=== PATIENT | female | born 1960 | race Caucasian/White ===

== ENCOUNTER 2024-07-12 18:32 | Observation (INO) | payer OTHER ==
--- NOTE | 2024-07-12 19:02 | ED ---
General Adult HPI - General Chief complaint: Dizziness Stated complaint: Dizzy/Headache Time Seen by Provider: 07/12/24 18:36 Source: patient Mode of arrival: EMS Limitations: no limitations - History of Present Illness Initial comments: Patient is a 63-year-old female history of paroxysmal atrial fibrillation, migraine headaches, recent TIA presenting today for sudden onset headache and dizziness. History is limited as patient is very uncomfortable. States was admitted about a week ago in [place] for a TIA and was in atrial fibrillation at that time. That was a new diagnosis for the patient and she spontaneously converted to sinus rhythm. She was not discharged on any anticoagulants. Patient states that her TIA did have similar symptoms to today however the severe headache did not happen previously. Patient estimates her headache started sometime this evening. It has been top with her head to the front of her head. She endorses dizziness like the room is spinning worsening with head movements. Associated nausea without episodes of emesis. States she feels like her stomach is upset but denies abdominal pain. She denies chest pain or shortness of breath, neck stiffness, focal numbness, weakness or slurred speech. Denies changes in vision. No meds prior to arrival. - Related Data Home Medications Medication Instructions Recorded Confirmed Aspirin EC [Ecotrin Low Dose] 81 mg PO DAILY 07/12/24 07/12/24 Atorvastatin [Lipitor] 40 mg PO HS 07/12/24 07/12/24 Biotin 5,000 mcg PO BID 07/12/24 07/12/24 Citalopram Hydrobromide [CeleXA] 40 mg PO BID 07/12/24 07/12/24 Cyclobenzaprine [Flexeril] 10 mg PO HS 07/12/24 07/12/24 D-Mannose 500mg 1,000 mg PO HS 07/12/24 07/12/24 Ergocalciferol (Vitamin D2) 1,250 mcg PO FR 07/12/24 07/12/24 [Drisdol (50,000 Iu)] Methenamine Hippurate 1 gm PO HS 07/12/24 07/12/24 Mirtazapine [Remeron] 15 mg PO HS 07/12/24 07/12/24 Omeprazole 20 mg PO AC-BID 07/12/24 07/12/24 Oxybutynin Chloride [oxyBUTYnin 10 mg PO HS 07/12/24 07/12/24 chloride ER] Topiramate 100 mg PO DAILY 07/12/24 07/12/24 busPIRone HCl [Buspar] 10 mg PO DAILY 07/12/24 07/12/24 Previous Rx's Medication Instructions Recorded Acetaminophen Tab [Tylenol] 650 mg PO Q6HR PRN tab 07/15/24 Ketorolac [Toradol] 10 mg PO BID PRN #10 tab 07/15/24 Magnesium Oxide [Mag-Ox] 400 mg PO BID #60 tablet 07/15/24 Meclizine [Antivert] 25 mg PO TID #40 tab 07/15/24 Ondansetron Odt [Zofran Odt] 4 mg PO Q8HR PRN #15 tab 07/15/24 Allergies Allergy/AdvReac Type Severity Reaction Status Date / Time Penicillins Allergy Anaphylaxis Verified 07/12/24 20:01 tetanus and diphtheria Allergy Anaphylaxis Verified 07/12/24 20:01 toxoids Review of Systems ROS Statement: Those systems with pertinent positive or pertinent negative responses have been documented in the HPI. ROS Other: All systems not noted in ROS Statement are negative. Past Medical History Past Medical History: CVA/TIA, GERD/Reflux Additional Past Medical History / Comment(s): TIA, Bladder problem General Exam - General Exam Comments Initial Comments: PE: CONSTITUTIONAL: No apparent distress, ill-appearing, nontoxic SKIN: Warm, dry, no jaundice, hives or petechiae EYES: Pupils are equally round, extraocular movements intact without nystagmus, clear conjunctiva, non-icteric sclera HENT: Normocephalic, atraumatic, moist mucus membranes, oropharynx clear without exudates NECK: , Full range of motion, normal appearance PULMONARY: Clear to auscultation without wheezes, rhonchi, or rales, normal excursion, no accessory muscle use and no stridor CARDIOVASCULAR: Regular rate, rhythm, normal S1 and S2. No appreciated murmurs, rubs or gallops. Strong radial pulses with intact distal perfusion. No lower extremity edema GASTROINTESTINAL: Soft, active bowel sounds throughout, non-tender, non- distended, no palpable masses, no rebound or guarding. No hepatosplenomegaly MUSCULOSKELETAL: Extremities have no gross deformity, no edema, redness, or swelling. No calf swelling NEUROLOGIC:_a/o x 3, GCS 15, normal mentation and speech. Moves all extremities x 4 without motor or sensory deficit, exam limited by patient's ability to cooperate with exam due to severe dizziness, has difficulty keeping her eyes open due to dizziness with eye movements, cranial nerves: II (visual diaz without defects), III, IV and (extraocular movements are intact, pupils are equal with normal reaction to light), V (intact facial sensation and jaw opening), VII (no facial droop), IX and X (normal palate movement, midline uvula, normal voice), XI (symmetrical shoulder shrug and lateral head rotation against resistance), XII (midline tongue protrusion). Motor strength is 5/5 in all extremities. No abnormal movements. Normal muscle tone. Sensation to light touch is intact bilaterally. [id number] is normal, patient was briefly able to perform [id number]-[id number] testing however was unable to complete this portion of exam due to dizziness, however with portion exam that was completed there was no dysdiadochokinesia PSYCHIATRIC:_normal mood and affect, thought process is clear and linear Limitations: no limitations Course Vital Signs 07/12/24 07/12/24 07/13/24 18:32 21:01 00:20 Temperature 98.1 F 97.7 F Pulse Rate 80 84 73 Pulse Rate [ Pulse Oximetery ] Respiratory 20 20 20 Rate Blood Pressure 121/102 157/82 112/61 Blood Pressure [Right Arm] O2 Sat by Pulse 97 96 Oximetry 07/13/24 07/13/24 07/13/24 02:00 04:00 08:45 Temperature 98.5 F Pulse Rate 77 68 76 Pulse Rate [ Pulse Oximetery ] Respiratory 18 18 20 Rate Blood Pressure 110/63 124/74 116/87 Blood Pressure [Right Arm] O2 Sat by Pulse 97 97 97 Oximetry 07/13/24 07/13/24 07/13/24 18:45 20:00 20:36 Temperature 96.7 F L Pulse Rate 82 84 Pulse Rate [ 83 Pulse Oximetery ] Respiratory 20 20 Rate Blood Pressure 146/85 132/87 Blood Pressure 129/62 [Right Arm] O2 Sat by Pulse 96 93 L 96 Oximetry - Reevaluation(s) Reevaluation #1: CT team was contacted regarding concern for subarachnoid hemorrhage, due to new headache and severe dizziness, recent admission for TIA and request for priority CT. CT did just stop working so this will be briefly delayed due to this. I again relayed the urgency of needing patient a CT scan performed, this will be done a soon as possible. 07/12/24 19:00 07/15/24 21:01 EKG Findings - EKG Comments: EKG Findings:: Sinus rhythm with PVCs, rate 76 bpm KS interval 172 ms QT/QTc 420/454 ms, normal axis, no ST elevations or depressions, respiratory variation Medical Decision Making - Medical Decision Making Was pt. sent in by a medical professional or institution (, PA, CATEGORY CONSULTANT, urgent care, hospital, or [place] health care facility...) When possible be specific @ -No Did you speak to anyone other than the patient for history (EMS, parent, family, police, friend...)? What history was obtained from this source @ -No Did you review nursing and triage notes (agree or disagree)? Why? @ -I reviewed nursing and triage notes-I evaluated the patient prior to triage note being recorded Were old charts reviewed (outside hosp., previous admission, EMS record, old EKG, old radiological studies, urgent care reports/EKG's, [place] health care facility records)? Report findings @ -Medical records reviewed-no prior ED visits for review Differential Diagnosis (chest pain, altered mental status, abdominal pain women, abdominal pain men, vaginal bleeding, weakness, fever, dyspnea, syncope, headache, dizziness, GI bleed, back pain, seizure, CVA, palpatations, mental health, musculoskeletal)? Differential diagnose remains broad however top considerations include benign p aroxysmal positional Vertigo, Meniere's disease, otitis media, acoustic neuroma, vertebrobasilar insufficiency, cerebellar stroke, subarachnoid hemorrhage, encephalitis, hypovolemic, arrhythmia, coronary artery syndrome, anemia, this is not meant to be an all-inclusive list EKG interpreted by me (3pts min.). @ -As above X-rays interpreted by me (1pt min.). @Chest x-ray was reviewed I see no evidence of pleural effusions, pneumothorax or consolidations, I agree with radiologist interpretation CT interpreted by me (1pt min.). @Reviewed CT brain, I see no evidence of hemorrhage or mass effect, personally reviewed CT angiogram I see no evidence of hemorrhage, dissection, large vessel occlusion, on specific attention to CT C-spine I see no evidence of fracture or malalignment U/S interpreted by me (1pt. min.). @ -None done What testing was considered but not performed or refused? (CT, X-rays, U/S, labs)? Why? @ -None What meds were considered but not given or refused? Why? @ -None Did you discuss the management of the patient with other professionals (professionals i.e. DrSriram, PA, CATEGORY CONSULTANT, lab, RT, psych nurse, oncology social worker, superior court judge, teacher, postal delivery officer, window caser)? Give summary @ -No Was smoking cessation discussed for >3mins.? @ -No Was critical care preformed (if so, how long)? @ -No Were there social determinants of health that impacted care today? How? (Homelessness, low income, unemployed, alcoholism, drug addiction, transportation, low edu. Level, literacy, decrease access to med. care, prison, rehab)? @ -No Was there de-escalation of care discussed even if they declined (Discuss DNR or withdrawal of care, Hospice)? @ -No What co-morbidities impacted this encounter? (DM, HTN, Smoking, COPD, CAD, Cancer, CVA, ARF, Chemo, Hep., AIDS, mental health diagnosis, sleep apnea, morbid obesity)? Paroxysmal A-fib, migraines Was patient admitted / discharged? Hospital course, mention meds given and route, prescriptions, significant lab abnormalities, going to OR and other per tinent info. @ Admission- This is a pleasant 63-year-old female history recent TIA, paroxysmal A-fib, migraine headaches presenting today for severe headache and dizziness. Patient seen assessed on arrival. She has no focal neurologic deficits, hints exam is unable be performed due to severe dizziness. She had normal finger-nose testing with her right upper extremity however finger-nose testing was stopped due to severe dizziness with [id number]-[id number]-xpyt testing. Otherwise no focal deficits. She is not severely hypertensive here. Headache onset within the last 6 hours. Of the top concern there subarachnoid hemorrhage vs cerebellar etiology, stat CT brain and CTA were ordered. Patient does have history of BIGGS so Tylenol cannot be used for headache. Ordered morphine, Benadryl, Reglan and Zofran CT brain, CTA negative for acute process. Chest x-ray negative for acute process. Labs reassuring. On reassessment patient endorses mild proved of her headache however still notes persistent dizziness. Discussed with patient admission for observation for intractable dizziness, nausea and vomiting. Given headache onset within 6 hours of arrival and negative CT and CTA subarachnoid he morrhage ruled out I do not feel further workup with LP is indicated at this point. Case discussed with Dr. Salcedo, kindly accepts pt for admission. Undiagnosed new problem with uncertain prognosis? @ -No Drug Therapy requiring intensive monitoring for toxicity (Heparin, Nitro, Insulin, Cardizem)? @ -No Were any procedures done? @ -No Diagnosis/symptom? @Intractable headache, intractable dizziness Acute, or Chronic, or Acute on Chronic? @ -Acute Uncomplicated (without systemic symptoms) or Complicated (systemic symptoms)? Complicated Side effects of treatment? @ -No Exacerbation, Progression, or Severe Exacerbation? @ -No Poses a threat to life or bodily function? How? (Chest pain, USA, VT, pneumonia, PE, COPD, DKA, ARF, appy, cholecystitis, CVA, Diverticulitis, Homicidal, Suicidal, threat to staff... and all critical care pts) @ - Lab Data Result diagrams: 07/12/24 19:10 07/15/24 03:51 Lab Results 07/12/24 07/12/24 07/12/24 Range/Units 19:10 19:10 19:14 WBC 5.0 (3.8-10.6) k/uL RBC 4.53 (3.80-5.40) m/uL Hgb 13.9 (11.4-16.0) gm/dL Hct 43.7 (34.0-46.0) % MCV 96.4 (80.0-100.0) fL MCH 30.7 (25.0-35.0) pg MCHC 31.8 (31.0-37.0) g/dL RDW 13.3 (11.5-15.5) % Plt Count 138 L (150-450) k/uL MPV 8.3 Neutrophils % 63 % Lymphocytes % 26 % Monocytes % 7 % Eosinophils % 2 % Basophils % 0 % Neutrophils # 3.2 (1.3-7.7) k/uL Lymphocytes # 1.3 (1.0-4.8) k/uL Monocytes # 0.3 (0-1.0) k/uL Eosinophils # 0.1 (0-0.7) k/uL Basophils # 0.0 (0-0.2) k/uL PT 10.7 (10.0-12.5) sec INR 1.0 (<1.2) APTT 19.9 L (22.0-30.0) sec Sodium (137-145) mmol/L Potassium (3.5-5.1) mmol/L Chloride (98-107) mmol/L Carbon Dioxide (22-30) mmol/L Anion Gap mmol/L BUN (7-17) mg/dL Creatinine (0.52-1.04) mg/dL Est GFR (CKD-EPI)AfAm (>60 ml/min/1.73 sqM) Est GFR (CKD-EPI)NonAf (>60 ml/min/1.73 sqM) Glucose (74-99) mg/dL POC Glucose (mg/dL) 86 (70-110) mg/dL POC Glu [employer] Consultant ID [place] Rosaura Calcium (8.4-10.2) mg/dL Magnesium (1.6-2.3) mg/dL Total Bilirubin (0.2-1.3) mg/dL AST (14-36) U/L ALT (4-34) U/L Alkaline Phosphatase (38-126) U/L Ammonia (<30) umol/L Troponin I (0.000-0.034) ng/mL Total Protein (6.3-8.2) g/dL Albumin (3.5-5.0) g/dL 07/12/24 07/12/24 07/12/24 Range/Units 19:52 19:52 19:52 WBC (3.8-10.6) k/uL RBC (3.80-5.40) m/uL Hgb (11.4-16.0) gm/dL Hct (34.0-46.0) % MCV (80.0-100.0) fL MCH (25.0-35.0) pg MCHC (31.0-37.0) g/dL RDW (11.5-15.5) % Plt Count (150-450) k/uL MPV Neutrophils % % Lymphocytes % % Monocytes % % Eosinophils % % Basophils % % Neutrophils # (1.3-7.7) k/uL Lymphocytes # (1.0-4.8) k/uL Monocytes # (0-1.0) k/uL Eosinophils # (0-0.7) k/uL Basophils # (0-0.2) k/uL PT (10.0-12.5) sec INR (<1.2) APTT (22.0-30.0) sec Sodium 139 (137-145) mmol/L Potassium 3.8 (3.5-5.1) mmol/L Chloride 109 H (98-107) mmol/L Carbon Dioxide 24 (22-30) mmol/L Anion Gap 6 mmol/L BUN 7 (7-17) mg/dL Creatinine 0.68 (0.52-1.04) mg/dL Est GFR (CKD-EPI)AfAm >90 (>60 ml/min/1.73 sqM) Est GFR (CKD-EPI)NonAf >90 (>60 ml/min/1.73 sqM) Glucose 79 (74-99) mg/dL POC Glucose (mg/dL) (70-110) mg/dL POC Glu [employer] Consultant ID Calcium 8.5 (8.4-10.2) mg/dL Magnesium 2.1 (1.6-2.3) mg/dL Total Bilirubin 0.4 (0.2-1.3) mg/dL AST 28 (14-36) U/L ALT 22 (4-34) U/L Alkaline Phosphatase 137 H (38-126) U/L Ammonia <9 (<30) umol/L Troponin I <0.012 (0.000-0.034) ng/mL Total Protein 5.9 L (6.3-8.2) g/dL Albumin 3.5 (3.5-5.0) g/dL Disposition Clinical Impression: Dizziness, Intractable headache Disposition: ADMITTED IP TO THIS [facility] Condition: Stable
[2024-07-12 19:15] LABS: Glucose,Whole Blood 86 mg/dL (70-110)
[2024-07-12] MEDS: MORPHINE SULFATE 4 MG/ML SYRINGE IVP STA (19:17)
[2024-07-12] MEDS: diphenhydrAMINE 50 MG/ML 1 ML VIAL IVP STA (19:19)
[2024-07-12] MEDS: METOCLOPRAMIDE 5 MG/ML 2 ML VIAL IVP STA (19:20)
[2024-07-12] MEDS: MECLIZINE 25 MG TAB PO STA (19:22)
[2024-07-12 19:23] LABS: Basophils % (A) 0 %; Eosinophils # (A) 0.1 k/uL (0-0.7); Eosinophils % (A) 2 %; HCT 43.7 % (34.0-46.0); HGB 13.9 gm/dL (11.4-16.0); Lymphocytes # (A) 1.3 k/uL (1.0-4.8); Lymphocytes % (A) 26 %; MCH 30.7 pg (25.0-35.0); MCHC 31.8 g/dL (31.0-37.0); MCV 96.4 fL (80.0-100.0); Mean Platelet Volume 8.3; Monocytes # (A) 0.3 k/uL (0-1.0); Monocytes % (A) 7 %; Neutrophils # (A) 3.2 k/uL (1.3-7.7); Neutrophils % (A) 63 %; Platelet Count 138 k/uL (150-450); RBC 4.53 m/uL (3.80-5.40); RDW 13.3 % (11.5-15.5)
[2024-07-12] MEDS: SODIUM CHLORIDE 0.9% 1,000 ML IV STA (19:23)
[2024-07-12 19:55] LABS: Prothrombin Time 10.7 sec (10.0-12.5)
--- NOTE | 2024-07-12 20:00 | XR ---
EXAMINATION TYPE: XR chest 2V DATE OF EXAM: 07/12/2024 7:46 PM COMPARISON: None. CLINICAL INDICATION: Female, 63 years old with history of syncope, TECHNIQUE: Frontal and lateral views of the chest are obtained. FINDINGS: Elevated right hemidiaphragm. Overlying EKG leads are seen. There is no focal air space opa city, pleural effusion, or pneumothorax seen. The cardiac silhouette size is within normal limits. The osseous structures are intact. IMPRESSION: No acute cardiopulmonary process. [facility], , 07/12/2024 7:58 PM
[2024-07-12] MEDS: ACETAMINOPHEN TAB 500 MG TAB PO STA (20:02)
[2024-07-12] MEDS: ONDANSETRON 4 MG/2 ML VIAL IVP STA ×2 (20:03→22:13)
--- NOTE | 2024-07-12 20:03 | CT ---
EXAMINATION TYPE: CT brain wo con DATE OF EXAM: 07/12/2024 COMPARISON: None. CLINICAL INDICATION: Female, 63 years old with history of Headache; PHH, BELL. Dizziness. TECHNIQUE: CT scan of the head is performed without contrast. CT DLP: 1128 mGycm Automated exposure control for dose reduction was used. FINDINGS: There is no acute intracranial hemorrhage or midline shift identified. There is mild diff use ventricular and sulcal prominence consistent with diffuse age-related cerebral atrophy. There is mild low-attenuation in the periventricular white matter most likely consistent with chronic small v essel ischemic change. The globes are intact and the visualized sinuses are clear. No suspicious op acification of mastoid air cells bilaterally. IMPRESSION: No acute intracranial hemorrhage or midline shift. [facility], , 07/12/2024 8:00 PM
--- NOTE | 2024-07-12 20:09 | CT ---
EXAMINATION TYPE: CT angio head neck DATE OF EXAM: 07/12/2024 COMPARISON: None. CLINICAL INDICATION: Female, 63 years old with history of sudden BELL, dizziness; PHH, BELL. Dizziness. TECHNIQUE: CTA scan of the head and neck is performed with IV Contrast, patient injected with 65 ml mL of Isovue 370, axial images are obtained, coronal and sagittal reformatted images are reviewed. 3D reconstructed images are created on an independent workstation and reviewed. CT DLP: 720.7 mGycm Automated exposure control for dose reduction was used. NASCET criteria was used in interpretation of this exam? FINDINGS: Right Carotid System: The common carotid artery and external carotid artery are patent. The carotid bifurcation demonstrate s no evidence of hemodynamically significant stenosis. Mild to moderate peripheral calcified plaque i s present. The remaining portions of the internal carotid artery demonstrate normal size without sign ificant narrowing. Mucc-lf-[id number] peripheral calcified plaque distally is seen. Left Carotid System: The common carotid artery and external carotid artery are patent. The carotid bifurcation demonstrate s no evidence of hemodynamically significant stenosis. Mild peripheral calcified plaque is present. T he remaining portions of the internal carotid artery demonstrate normal size without significant narr owing. Mild peripheral calcified plaque distally is seen. Vertebral arteries are patent without evidence of hemodynamically significant stenosis. Codominant ve rtebral arteries are noted. Poorly visualized or hypoplastic anterior communicating and bilateral posterior to indicating arterie s. No large vessel occlusion or aneurysm at the level of the [place]. There is a three-vessel aortic arch. The origins of the great vessels are patent. No evidence of hemo dynamically significant stenosis. Other: Scoliotic curvature in the cervical thoracic spine is seen. IMPRESSION: 1. No evidence of significant stenosis in the common or internal carotid arteries. No large vessel o cclusion or aneurysm at the level of the [place]. [facility], , 07/12/2024 8:07 PM
[2024-07-12 20:13] LABS: Partial Thromboplastin Time 19.9 sec (22.0-30.0)
[2024-07-12 20:18] LABS: ALT 22 U/L (4-34); AST 28 U/L (14-36); African American GFR (CKD) >90 (>60 ml/min/1.73 sqM); Albumin 3.5 g/dL (3.5-5.0); Alkaline Phosphatase 137 U/L (38-126); Anion Gap 6 mmol/L; Blood Urea Nitrogen 7 mg/dL (7-17); Calcium 8.5 mg/dL (8.4-10.2); Carbon Dioxide 24 mmol/L (22-30); Chloride 109 mmol/L (98-107); Glucose 79 mg/dL (74-99); Magnesium 2.1 mg/dL (1.6-2.3); Non-African American GFR(CKD) >90 (>60 ml/min/1.73 sqM); Potassium 3.8 mmol/L (3.5-5.1); Sodium 139 mmol/L (137-145); Total Bilirubin 0.4 mg/dL (0.2-1.3); Total Protein 5.9 g/dL (6.3-8.2)
[2024-07-12] MEDS: MAGNESIUM SULFATE-D5W PMX 1 GM in DEXTROSE/WATER 1 100ML.BAG IVPB SCH (22:08)
[2024-07-12] MEDS ORDERED: MORPHINE SULFATE 4 MG/ML SYRINGE IV PRN (22:50)
[2024-07-12] MEDS ORDERED: NALOXONE 0.4 MG/ML 1 ML VIAL IV PRN (22:50)
[2024-07-12] MEDS ORDERED: CALCIUM CARBONATE 500 MG CHEWABLE PO PRN (22:50)
[2024-07-12] MEDS ORDERED: MAG HYDROX/AL HYDROX/SIMETH 30 ML CUP PO PRN (22:50)
[2024-07-13] MEDS: DEXTROSE 5%-0.45% NACL 1,000 ML IV SCH (00:12)
[2024-07-13] MEDS: ATORVASTATIN 40 MG TAB PO SCH (00:16)
[2024-07-13] MEDS: CYCLOBENZAPRINE 10 MG TAB PO SCH (00:16)
[2024-07-13] MEDS: OXYBUTYNIN 10 MG TAB.ER.24 PO SCH (00:50)
[2024-07-13] MEDS: MIRTAZAPINE 15 MG TAB PO SCH (00:50)
[2024-07-13] MEDS: HYDROmorphone 0.5 MG/0.5 ML SYRINGE IVP PRN (06:18)
[2024-07-13] MEDS: CITALOPRAM HYDROBROMIDE 20 MG TAB PO SCH (08:43)
[2024-07-13] MEDS: busPIRone HCl 10 MG TAB PO SCH (08:43)
[2024-07-13] MEDS: PANTOPRAZOLE 40 MG TABLET PO SCH (08:43)
[2024-07-13] MEDS: TOPIRAMATE 100 MG TAB PO SCH (08:43)
[2024-07-13] MEDS: ASPIRIN 81 MG PO SCH (08:43)
[2024-07-13] MEDS: FAMOTIDINE 20 MG TAB PO SCH (08:44)
--- NOTE | 2024-07-13 13:35 | P.HPIM ---
History of Present Illness 63-year-old female with history of paroxysmal atrial fibrillation came in with complaints of vertigo which gets worse with movement of the head. Patient's vertigo started yesterday denied any hearing problems denied any fullness, ring ing in the ears. Patient denied any congestion or recent URI symptoms. Patient does have history of migraine. Patient was recently admitted to the hospital with concerns of TIA with similar symptoms associate with headache at the time patient is found to have atrial fibrillation spontaneously converted to sinus rhythm because of which patient was not started on any anticoagulation. Patient symptoms improved but still has some dizziness which is vertigo. Patient denied any weakness or unstable gait. Patient had nausea vomiting yesterday which resolved at this time. Patient had a CT of the head and CT angiogram of the head along with chest x-ray all are essentially within normal limits REVIEW OF SYSTEMS: All other systems are negative except those mentioned in the HPI PHYSICAL EXAMINATION: GENERAL: The patient is alert and oriented x3, not in any acute distress. Well developed, well nourished. HEENT: Pupils are round and equally reacting to light. EOMI. No scleral icterus. No conjunctival pallor. Normocephalic, atraumatic. No pharyngeal erythema. No thyromegaly. CARDIOVASCULAR: S1 and S2 present. No murmurs, rubs, or gallops. PULMONARY: Chest is clear to auscultation, no wheezing or crackles. ABDOMEN: Soft, nontender, nondistended, normoactive bowel sounds. No palpable organomegaly. MUSCULOSKELETAL: No joint swelling or deformity. EXTREMITIES: No cyanosis, clubbing, or pedal edema. NEUROLOGICAL: Gross neurological examination did not reveal any focal deficits. SKIN: No rashes. Assessment and plan -Vertigo appears to be peripheral vertigo. Continue that patient had atrial fibrillation paroxysmal recently, consulted neurology to evaluate for stroke co ntributing to her symptoms. Patient was started on meclizine --Paroxysmal atrial fibrillation presently not on any anticoagulation -Gastroesophageal reflux disease -Depression -Hyperlipidemia For above-mentioned chronic medical problems patient will be resumed on appropriate home medications DVT prophylaxis: Lovenox 50 mg subcutaneous Past Medical History Past Medical History: CVA/TIA, GERD/Reflux Additional Past Medical History / Comment(s): TIA, Bladder problem Medications and Allergies Home Medications Medication Instructions Recorded Confirmed Type Aspirin EC [Ecotrin Low Dose] 81 mg PO DAILY 07/12/24 07/12/24 History Atorvastatin [Lipitor] 40 mg PO HS 07/12/24 07/12/24 History Biotin 5,000 mcg PO BID 07/12/24 07/12/24 History Citalopram Hydrobromide [CeleXA] 40 mg PO BID 07/12/24 07/12/24 History Cyclobenzaprine [Flexeril] 10 mg PO HS 07/12/24 07/12/24 History D-Mannose 500mg 1,000 mg PO HS 07/12/24 07/12/24 History Ergocalciferol (Vitamin D2) 1,250 mcg PO FR 07/12/24 07/12/24 History [Drisdol (50,000 Iu)] Methenamine Hippurate 1 gm PO HS 07/12/24 07/12/24 History Mirtazapine [Remeron] 15 mg PO HS 07/12/24 07/12/24 History Omeprazole 20 mg PO AC-BID 07/12/24 07/12/24 History Oxybutynin Chloride [oxyBUTYnin 10 mg PO HS 07/12/24 07/12/24 History chloride ER] Topiramate 100 mg PO DAILY 07/12/24 07/12/24 History busPIRone HCl [Buspar] 10 mg PO DAILY 07/12/24 07/12/24 History Allergies Allergy/AdvReac Type Severity Reaction Status Date / Time Penicillins Allergy Anaphylaxis Verified 07/12/24 20:01 tetanus and diphtheria Allergy Anaphylaxis Verified 07/12/24 20:01 toxoids Physical Exam Vitals: Vital Signs Temp Pulse Resp BP Pulse Ox 07/13/24 08:45 98.5 F 76 20 116/87 97 07/13/24 04:00 68 18 124/74 97 07/13/24 02:00 77 18 110/63 97 07/13/24 00:20 97.7 F 73 20 112/61 96 07/12/24 21:01 84 20 157/82 07/12/24 18:32 98.1 F 80 20 121/102 97 Intake and Output 07/12/24 07/13/24 07/13/24 22:59 06:59 14:59 Other: # Voids 1 Weight 97.522 kg Results CBC & Chem 7: 07/12/24 19:10 07/12/24 19:52 Labs: Abnormal Lab Results - Last 24 Hours (Table) 07/12/24 07/12/24 07/12/24 Range/Units 19:10 19:10 19:52 Plt Count 138 L (150-450) k/uL APTT 19.9 L (22.0-30.0) sec Chloride 109 H (98-107) mmol/L Alkaline Phosphatase 137 H (38-126) U/L Total Protein 5.9 L (6.3-8.2) g/dL
--- NOTE | 2024-07-13 16:58 | P.CNNES ---
History of Present Illness Consult date: 07/13/24 Requesting physician: Bobbi Chapman Reason for Consult: intractable dizziness and headache History of Present Illness: This is a 63 year-old woman who presents to the emergency department because of headache and dizziness. Patient states she has been having dizziness and headache for the last 2 days and she feels the headache is diffuse it is aching pain at 7-8 out of 10. She does have nausea and has dry heaves. Denies any focal weakness. She feels with movement the headache is worse as well as the light makes it worse and light makes it better. It is constant. She had a recent fall recently denies any history of seizure. Unsure how basically she fell while visiting her daughters place. She has dizziness and she feels like her head is spinning. As stated she has nausea and has dry heaves. Denies any ringing in the ears or hearing loss. Denies any focal weakness numbness visual disturbance. Had dizziness about a week ago and she was at outside hospital and had MRI of the brain which was unremarkable. During that outside hospital visit she had dizziness shortness of breath and she was told she had TIA. It seems that she had run of atrial fibrillation that is newly diagnosed as possibly con verted back to sinus rhythm at the outside hospital and was discharged without any anticoagulation. Currently patient denies any fever or any sick contacts she is aware of. Some of the work-up during this hospital visit consisted of: I reviewed the lab workup. CT head: No acute intracranial hemorrhage or midline shift. Reviewed the CT of the head and agree with the report. CTA head and neck is reported as no evidence of significant stenosis in the common or internal carotid artery. No large vessel occlusion or aneurysm at the level of [place]. Review of Systems As per HPI. Past Medical History Past Medical History: CVA/TIA, GERD/Reflux Additional Past Medical History / Comment(s): TIA, Bladder problem Medications and Allergies Home Medications Medication Instructions Recorded Confirmed Type Aspirin EC [Ecotrin Low Dose] 81 mg PO DAILY 07/12/24 07/12/24 History Atorvastatin [Lipitor] 40 mg PO HS 07/12/24 07/12/24 History Biotin 5,000 mcg PO BID 07/12/24 07/12/24 History Citalopram Hydrobromide [CeleXA] 40 mg PO BID 07/12/24 07/12/24 History Cyclobenzaprine [Flexeril] 10 mg PO HS 07/12/24 07/12/24 History D-Mannose 500mg 1,000 mg PO HS 07/12/24 07/12/24 History Ergocalciferol (Vitamin D2) 1,250 mcg PO FR 07/12/24 07/12/24 History [Drisdol (50,000 Iu)] Methenamine Hippurate 1 gm PO HS 07/12/24 07/12/24 History Mirtazapine [Remeron] 15 mg PO HS 07/12/24 07/12/24 History Omeprazole 20 mg PO AC-BID 07/12/24 07/12/24 History Oxybutynin Chloride [oxyBUTYnin 10 mg PO HS 07/12/24 07/12/24 History chloride ER] Topiramate 100 mg PO DAILY 07/12/24 07/12/24 History busPIRone HCl [Buspar] 10 mg PO DAILY 07/12/24 07/12/24 History Allergies Allergy/AdvReac Type Severity Reaction Status Date / Time Penicillins Allergy Anaphylaxis Verified 07/12/24 20:01 tetanus and diphtheria Allergy Anaphylaxis Verified 07/12/24 20:01 toxoids Physical Examination - Vital Signs Vital Signs: Vital Signs Temp Pulse Resp BP Pulse Ox 07/13/24 08:45 98.5 F 76 20 116/87 97 07/13/24 04:00 68 18 124/74 97 07/13/24 02:00 77 18 110/63 97 07/13/24 00:20 97.7 F 73 20 112/61 96 07/12/24 21:01 84 20 157/82 07/12/24 18:32 98.1 F 80 20 121/102 97 GENERAL: The patient is sitting on bed and is not in acute distress. NEUROLOGICAL: Limited because of cooperation. Higher mental function: The patient is awake, alert, oriented to self, place and time. Patient is following commands. No aphasia and no neglect. Cranial nerves: The pupils are round, 3mm and reactive to light. Not assessed the visual diaz or extraocular movement because of she stated that it is making her head dizziness worse. Facial sensation is normal to touch throughout. The facial strength is normal throughout. Hearing is normal bilaterally to hand rub. Tongue is midline and moved [id number] without any difficulty. No dysarthria is noted. Motor: The strength is noted in the proximal right upper extremity because of old shoulder issues but other than that strength is 5 out of 5 throughout. Normal tone and bulk. Cerebellum: Normal finger to nose heel to evangelista bilaterally. Sensation: Sensation is normal to touch throughout. Reflexes (right/left): 2+ throughout. Plantars are downgoing bilaterally. Results - Laboratory Findings CBC and BMP: 07/12/24 19:10 07/12/24 19:52 Abnormal Lab Findings: Abnormal Labs 07/12/24 07/12/24 07/12/24 19:10 19:10 19:52 Plt Count 138 L APTT 19.9 L Chloride 109 H Alkaline Phosphatase 137 H Total Protein 5.9 L Assessment and Plan Assessment: This is a 63-year-old woman who presented emergency department because of headache and dizziness. It seems that the patient a week ago had a recent TIA with atrial fibrillation as well as shortness of breath and was hospitalized at an outside facility and had MRI of the brain which was unremarkable. She was discharged without anticoagulation for the A-fib according to the patient. Acute cephalgia and vertigo: Possible due to underlying atrial fibrillation. Also rule out underlying stroke but I feel unlikely. Recent TIA Recent atrial fibrillation that spontaneously converted to sinus rhythm at outside facility and was not discharged on anticoagulation Plan: I ordered MRI of the brain with and without Ordered orthostatic vitals. Ordered routine EEG because of recent fall. Patient is on aspirin 81 mg daily and she is on Lipitor 40 mg daily. Patient was given meclizine 25 mg once in the ED also was given Valium and Benadryl. I started the patient on meclizine 25 mg 1 tablet 3 times daily for 7 days after that as needed. Patient continues to have dizziness and unknown source then I recommend the patient to follow-up with the ENT and consider vestibular rehab therapy. Regarding the management of atrial fibrillation will defer the management to the primary team. Consider cardiology consultation Continue neurochecks Cardiac monitoring For DVT prophylaxis the patient is on Lovenox Thank you for the consultation. Time with Patient: Greater than 30
[2024-07-13] MEDS ORDERED: D MANNOSE PO SCH (21:00)
[2024-07-13] MEDS: MECLIZINE 25 MG TAB PO PRN (22:09)
[2024-07-13] MEDS: NON FORMULARY DRUG (Methenamine Hippurate [Methenamine Hippurate] 1 GM Tablet) PO SCH (23:29)
[2024-07-13] MEDS: ONDANSETRON 4 MG/2 ML VIAL IVP PRN (23:44)
[2024-07-14] MEDS: ALPRAZolam 0.25 MG TAB PO PRN (08:29)
[2024-07-14] MEDS: ENOXAPARIN 60 MG/0.6 ML SYRINGE SQ SCH (08:52)
--- NOTE | 2024-07-14 13:18 | P.PN ---
Subjective Progress Note Date: 07/14/24 I am following up with the patient and she states her dizziness has resolved but continues to have headache but it is slightly better today compared to yesterday. Denies any focal numbness or weakness. She states she has history of migraine and she is on Topamax and does not feel it is effective. She feels the headache is slightly worse than her typical headache. Regarding her prior hospitalization in the last week or 2 at the outside facility she stated that besides the shortness of breath dizzy she also had complete vision loss of both eyes and had the MRI at the outside facility and was unremarkable and that is why she was notified that is TIA. Objective - Vital Signs Vital signs: Vital Signs Temp 98.6 F 07/14/24 06:56 Pulse 72 07/14/24 12:35 Resp 17 07/14/24 12:35 BP 120/69 07/14/24 06:56 Pulse Ox 93 L 07/14/24 06:56 FiO2 Intake & Output 07/13/24 07/14/24 07/14/24 18:59 06:59 18:59 Weight 97.522 kg Other: Voiding Method Bedside Commode Bedside Commode # Voids 2 - Exam GENERAL: The patient is sitting on bed and is not in acute distress. NEUROLOGICAL: Higher mental function: The patient is awake, alert, oriented to self, place and time. Patient is following commands. No aphasia and no neglect. Cranial nerves: The pupils are round, 3mm and reactive to light. Not assessed the visual diaz or extraocular movement because of she stated that it is making her head dizziness worse. Facial sensation is normal to touch throughout. The facial strength is normal throughout. Hearing is normal bilaterally to hand rub. Tongue is midline and moved [id number] without any difficulty. No dysarthria is noted. Motor: The strength is 5 out of 5 throughout. Normal tone and bulk. Cerebellum: Normal finger to nose heel to evangelista bilaterally. Sensation: Sensation is normal to touch throughout. Reflexes (right/left): 2+ throughout. Plantars are downgoing bilaterally. Some of the work-up during this hospital visit consisted of: Ammonia <9 I reviewed the lab workup. CT head: No acute intracranial hemorrhage or midline shift. Reviewed the CT of the head and agree with the report. CTA head and neck is reported as no evidence of significant stenosis in the common or internal carotid artery. No large vessel occlusion or aneurysm at the level of [place]. - Labs CBC & Chem 7: 07/12/24 19:10 07/12/24 19:52 Assessment and Plan Assessment: This is a 63-year-old woman who presented emergency department because of headache and dizziness. It seems that the patient a week ago had a recent TIA with atrial fibrillation as well as shortness of breath and was hospitalized at an outside facility and had MRI of the brain which was unremarkable. She was discharged without anticoagulation for the A-fib according to the patient. Acute cephalgia and vertigo: Possible due to underlying atrial fibrillation. Also rule out underlying stroke but I feel unlikely. Recent TIA (dizziness and bilateral visual loss) Recent atrial fibrillation that spontaneously converted to sinus rhythm at outside facility and was not discharged on anticoagulation History of Migraine and is on Topamax. Plan: Pending MRI of the brain with and without Pending orthostatic vitals. Pending routine EEG because of recent fall. Patient is on aspirin 81 mg daily and she is on Lipitor 40 mg daily. Patient is on Topamax 100 mg twice daily for her history of migraine and that is her home dose. I notified her I can start her on antidepressant but she wants to avoid that because of the side effects. I started the patient on magnesium 400 mg twice daily to assess if there is any benefit with her headache and if there is no improvement then will switch her to a different medication such as recommending adding Nurtec. Patient was given meclizine 25 mg once in the ED also was given Valium and Benadryl. I started the patient on meclizine 25 mg 1 tablet 3 times daily for 7 days after that as needed. Patient continues to have dizziness and unknown source then I recommend the patient to follow-up with the ENT and consider vestibular rehab therapy. Regarding the management of atrial fibrillation will defer the management to the primary team. Consider cardiology consultation Continue neurochecks Cardiac monitoring For DVT prophylaxis the patient is on Lovenox Dr. Gallego will resume neurology service tomorrow A.M. Time with Patient: Less than 30
[2024-07-14] MEDS: MAGNESIUM OXIDE 400 MG TAB PO SCH (14:05)
--- NOTE | 2024-07-14 14:30 | P.PN ---
Subjective Progress Note Date: 07/14/24 63-year-old female with history of paroxysmal atrial fibrillation came in with complaints of vertigo which gets worse with movement of the head. Patient's vertigo started yesterday denied any hearing problems denied any fullness, ringing in the ears. Patient denied any congestion or recent URI symptoms. Patient does have history of migraine. Patient was recently admitted to the hospital with concerns of TIA with similar symptoms associate with headache at the time patient is found to have atrial fibrillation spontaneously converted to sinus rhythm because of which patient was not started on any anticoagulation. Patient symptoms improved but still has some dizziness which is vertigo. Patient denied any weakness or unstable gait. Patient had nausea vomiting yesterday which resolved at this time. Patient had a CT of the head and CT angiogram of the head along with chest x-ray all are essentially within normal limits 07/14/2024 Patient is evaluated in follow-up on the medical floor she is reporting improvement in her dizziness. She is requesting something for headache. Reports it as a dull ache. Patient has been continued on Antivert 3 times a day as needed. She was recently admitted to [facility] for the same dizziness states that she underwent a brain MRI without hospital. She states that that was negative at that time. We did request reports from the outside hospital and they are currently pending. Patient will go for a brain MRI here. Neurology following closely. Additionally we will recommend an event monitor to be placed for discharge to understand the A-fib burden. Likely patient will be placed on a blood thinner on discharge. Review of Systems Constitutional: Denied any fatigue denied any fever. Cardio vascular: denied any chest pain, palpitations Gastrointestinal: denied any nausea, vomiting, diarrhea Pulmonary: Denied any shortness of breath cough Neurologic denied any new focal deficits Reports dizziness All inpatient medications were reviewed and appropriate changes in these medications as dictated in the interval history and assessment and plan. PHYSICAL EXAMINATION: GENERAL: The patient is alert and oriented x3, not in any acute distress. Well developed, well nourished. HEENT: Pupils are round and equally reacting to light. EOMI. No scleral icterus. No conjunctival pallor. Normocephalic, atraumatic. No pharyngeal erythema. No thyromegaly. CARDIOVASCULAR: S1 and S2 present. No murmurs, rubs, or gallops. PULMONARY: Chest is clear to auscultation, no wheezing or crackles. ABDOMEN: Soft, nontender, nondistended, normoactive bowel sounds. No palpable organomegaly. MUSCULOSKELETAL: No joint swelling or deformity. EXTREMITIES: No cyanosis, clubbing, or pedal edema. NEUROLOGICAL: Gross neurological examination did not reveal any focal deficits. SKIN: No rashes. Assessment and plan -Vertigo appears to be peripheral vertigo. Patient was started on meclizine TID -Paroxysmal atrial fibrillation presently not on any anticoagulation this was a recent diagnosis at outside hospital -Gastroesophageal reflux disease -Depression -Hyperlipidemia For above-mentioned chronic medical problems patient will be resumed on appropriate home medications DVT prophylaxis: Lovenox 50 mg subcutaneous Full Code Plan Pending brain MRI Pending reports from [facility] Continue aspirin 81 mg daily and atorvastatin 40 mg Recommend 1 week event monitor on discharge to evaluate burden of atrial fibrillation Discontinue IV fluids Monitor electrolytes and renal function EEG has been done and pending official report Neurology following. The impression and plan of care has been dictated by Rosa Nickerson, Nurse Practitioner as directed. Dr. Sherrill MD I have performed a history and physical examination and medical decision making of this patient, discussed the same with the dictator, and agree with the dic tators assessment and plan as written, documented as a scribe. Based on total visit time, I have performed more than 50% of this visit. Objective - Vital Signs Vital signs: Vital Signs Temp 98.6 F 07/14/24 06:56 Pulse 72 07/14/24 12:35 Resp 17 07/14/24 12:35 BP 120/69 07/14/24 06:56 Pulse Ox 93 L 07/14/24 06:56 FiO2 Intake & Output 07/13/24 07/14/24 07/14/24 18:59 06:59 18:59 Weight 97.522 kg Other: Voiding Method Bedside Commode Bedside Commode # Voids 2 - Labs CBC & Chem 7: 07/12/24 19:10 07/12/24 19:52 Assessment and Plan Time with Patient: Less than 30
[2024-07-14] MEDS: ACETAMINOPHEN TAB 325 MG TAB PO PRN (15:05)
--- NOTE | 2024-07-14 17:48 | MR ---
INDICATION: Patient age:Female; 63 years old; Reason for study: dizziness and headache; PHH. COMPARISON: CT brain 07/12/2024, CTA head and neck 07/12/2024. TECHNIQUE: Multi planar, multi sequence imaging was performed through the brain. The patient was then given 10 cc of Gadavist intravenously and multi planar, T1 fat-saturation images were obtained. FINDINGS: The solis-white junctions, ventricular system, basal cisterns appear unremarkable. Age-appropriate cer ebral volume loss. Diffusion-weighted imaging shows no evidence of restricted diffusion to suggest ac clair/subacute infarct. Intracranial arterial flow voids are maintained. T1 hyperintense falx lipoma id entified measuring up to 8 mm. Several foci of high T2/FLAIR signal intensity are seen within the sup ratentorial subcortical and periventricular white matter. Most are within the bilateral frontal lobes . The susceptibility weighted images do not reveal any evidence for micro-hemorrhage. After administr ation of gadolinium, no abnormal enhancement is seen. The bone marrow signal is within normal limits. The paranasal sinuses and globes are unremarkable. IMPRESSION: 1. No evidence of intracranial mass, acute/subacute infarct, or abnormal enhancement. 2. Nonspecific white matter changes, likely related to small vessel ischemic disease. Demyelinating d isease, chronic migraines, vasculitis, Lyme disease are other considerations. [facility], , 07/14/2024 5:46 PM
--- NOTE | 2024-07-14 22:20 | EEG ---
ELECTROENCEPHALOGRAM REPORT CLINICAL HISTORY: This is a 63-year-old woman with episode of a fall. The video EEG is obtained to evaluate for seizure epileptiform activity. RELEVANT MEDICATION: Topiramate. EEG TYPE: This is a routine 21-channel EEG with video using the 10/20 electrode placement system. DESCRIPTION: Wakefulness is only obtained. During awake state, posterior-dominant rhythm consists of [id number] voltage of 8.5 to 9.5 hertz activity that is well modulated and well sustained. There is no physiological stage 2 sleep architecture. There is no focal slowing. Interictal and ictal is none. ACTIVATION PROCEDURE: Photic stimulation did not evoke a posterior driving response. There is no abnormality during the photic stimulation. Hyperventilation is not performed. CLINICAL INTERPRETATION: This is a normal routine EEG during awake state. There is no focal slowing, epileptiform discharges, or seizure on the EEG. A normal routine EEG does not rule out underlying epilepsy. Clinical correlation is recommended. SYDNEE / ANNA: [id number] /
[2024-07-15 04:51] LABS: African American GFR (CKD) >90 (>60 ml/min/1.73 sqM); Anion Gap 4 mmol/L; Blood Urea Nitrogen 11 mg/dL (7-17); Calcium 8.8 mg/dL (8.4-10.2); Carbon Dioxide 24 mmol/L (22-30); Chloride 110 mmol/L (98-107); Glucose 96 mg/dL (74-99); Non-African American GFR(CKD) >90 (>60 ml/min/1.73 sqM); Potassium 3.8 mmol/L (3.5-5.1); Sodium 138 mmol/L (137-145)
[2024-07-15 07:39] VITALS: RESP 16
[2024-07-15] MEDS ORDERED: KETOROLAC 15 MG/ML 1 ML VIAL IVP PRN (12:15)
[2024-07-15] MEDS: MECLIZINE 25 MG TAB PO SCH (12:27)
[2024-07-15] MEDS: KETOROLAC 15 MG/ML 1 ML VIAL IVP STA (12:28)
[2024-07-15] MEDS: PROCHLORPERAZINE INJ 10 MG/2 ML VIAL IVP STA (12:28)
[2024-07-15] MEDS: diphenhydrAMINE 50 MG/ML 1 ML VIAL IVP STA (12:28)
[2024-07-15 14:40] VITALS: BP 129/69; PULSE 72; TEMP 97.8
== END 2024-07-15 15:57 | disposition home or self-care (01) ==
LOC: EC 18:32 → 6NMEDSUR 22:54 → 1SOBS 07-13 18:44 → 6NMEDSUR 07-14 18:04
PROVIDERS: ADMIT Internal Medicine; ATTEND Internal Medicine
DX: R42 Dizziness and giddiness (principal); G43.909 Migraine, unspecified, not intractable, without status migrainosus; I48.0 Paroxysmal atrial fibrillation; K21.9 Gastro-esophageal reflux disease without esophagitis; F32.A Depression, unspecified; E78.5 Hyperlipidemia, unspecified; Z86.73 Personal history of transient ischemic attack (TIA), and cerebral infarction without residual deficits; Z79.82 Long term (current) use of aspirin; Z79.899 Other long term (current) drug therapy; Z88.0 Allergy status to penicillin
CPT/HCPCS: 96376 ×5; 96375 ×3; 96365; 96366 ×2; 99285; 36415; 95816; 93005; 93270; 80053; 80048; 82140; 83735; 84484; 85025; 85610; 85730; 71046; 70496; 70450; 70498; 70553; G0378 ×4; J2270; J1200 ×2; J0780; J2765; J3360; J2405 ×3; J3475 ×2; J1885; J1171 ×3; Q9967; A9585